=== PATIENT | male | born 1940 | race African-American/Black ===

== ENCOUNTER → 2017-04-26 12:24 | Outpatient (CLI) | payer MEDICARE ==
[2015-05-12 12:55] VITALS: BMI 25.1
[~2017-04-26 12:24] MED LIST: FLOMAX0.4 MG PO; NORVASC2.5 MG PO; PROSCAR5 MG PO
== END | disposition home or self-care (01) ==
LOC: D.MRI 12:24
DX: M54.16 Radiculopathy, lumbar region (principal)

== ENCOUNTER 2017-05-16 11:09 | Outpatient (CLI) | payer MEDICARE ==
--- NOTE | ~2017-05-16 | HEMODYNAMI ---
PATIENT:OCHOA MCKEON MEDICAL RECORD: [id number] : 36 LOCATION:[facility] ADMISSION DATE: 05/16/17 Generatedon:05/16/201714:22 Patient name: OCHOA MCKEON Patient #: [id number] SSN: D OB: 1940 Date of study: 05/16/2017 Page: Of Hemodynamic Procedure Report Patient Data Patient Demographics Procedure consent was obtained First Name: OCHOA Gender: Male Last Name: LINDA : 1940 Patient #: [id number] Age: 77 year(s) Race: Black Additional ID: [id number] Contact details Address: [address] [place] [address] State: [place] City: [place] Zip code: [address] Past Medical History Allergies: No known allergies Admission Admission Data Admission Date: 05/16/2017 Admission Time: 11:09 Height (in.): 70 BSA: 1.95 (m2) Height (cm.): 177.8 BMI: 24.54 (kg/m2) Weight (lbs.): 171 Weight (kg.): 77.56 Lab Results Lab Result Date: 05/16/2017 Lab Result Time: 0:00 Biochemistry Name Units Result Min Max BUN mg/dl 17 --(---*)-- 7 18 Creatinine mg/dl 1.1 --(--*-)-- 0.6 1.3 CBC Name Units Result Min Max Hematocrit % 38.2 *-(----)-- 42 54 Hemoglobin g/dl 12.7 -*(----)-- 13.5 17.5 Procedure Procedure Types Cath Procedure Diagnostic Procedure C [facility] w/Coronaries Miscellaneous Procedures Moderate Sedation up to 15 minutes Peripheral Cath Diagnostic Procedure Cath Peripheral Snhac-Cppafnc-Wdf-Off Procedure Description Procedure Date Procedure Date: 05/16/2017 Procedure Start Time: 13:48 Procedure End Time: 14:15 Procedure Staff Name Function Gerardo Billingsley RN Radiology Receptionist Gunner Navarro MD Performing Physician Estefany CARDENAS Scrub Florencio Morales RT Monitor Procedure Data Cath Procedure Fluoroscopy Diagnostic fluoroscopy Total fluoroscopy Time: 6 time: 6 min min Diagnostic fluoroscopy Total fluoroscopy dose: dose: 1054 mGy 1054 mGy Contrast Material Contrast Material Type Amount (ml) Isovue 300 161 Entry Location Entry Primary Successful Side Size Upsize 1 Upsize Entry Closure Nolen ccessful Closure Location (Fr) (Fr) 2 (Fr) Remarks Device Remarks Femoral Right 5 Fr 6 Fr 6 Fr Exoseal artery Mid-Length Short Estimated blood loss: 10 ml Diagnostic catheters Device Type Used For End Catheter Placement Diagnostic Infinity 5Fr Procedure JL 5 catheter Cordis 5Fr 3DRC Catheter Procedure (MP) Cordis 5Fr Pigtail Procedure Catheter (MP) Cordis 5Fr JL 4.0 Procedure Catheter (MP) Procedure Complications No complications Procedure Medications Medication Administration Route Dosage Oxygen NC 2 l/min Heparin Flush Bag added to field 2 bags (1000units/500ml NS) 0.9% NaCl I.V. 100 ml/hr Fentanyl I.V. 50 mcg Versed I.V. 1 mg Fentanyl I.V. 50 mcg Versed I.V. 1 mg Heparin Bolus I.V. 4000 units Integrilin (Bolus I.V. 6.8 ml 2mg/ml) Integrilin (Bolus wasted 3.2 ml 2mg/ml) Plavix P.O. 600 mg Hemodynamics Rest BSA: 1.95 (m2) HGB: 12.7 (g/dl) O2 Consumption: Estimated: 216.39 (ml/min) O2 Co nsumption indexed: Estimated:110.97 (ml/min/m) Heart Rate: 61 (bpm) Pressure Samples Time Site Value (mmHg) Purpose Heart Use Rate(bpm) 13:57 LV 83/-27,-24 EDP 65 13:58 LV 105/-18,-16 Pullback 64 13:58 AO 99/42(65) Pullback 64 Gradients Valve Time Site 1 Site 2 Mean SEP/DFP Peak To Heart Use (mmHg) (sec/min) Peak Rate (mmHg) (bpm) Aortic 13:58 LV AO 5 16 6 64 105/-18,-16 99/42(65) Calculations Valve P-P Mean Valve Index Valve Source Name Gradient Area Flow (cm2) Aortic 6 5 6 5 Snapshots Pre Cath Intra NCS Post Cath Vital Signs Time Heart Resp SPO2 NIBP (mmHg) Rhythm Pain Sedation Rate (ipm) (%) Status Level (bpm) 13:19:28 53 17 94 151/91(111) NSR 0 (11) 10(A) , No pain 13:23:42 56 18 95 140/95(110) NSR 0 (11) 10(A) , No pain 13:27:52 53 17 95 145/95(118) NSR 0 (11) 10(A) , No pain 13:33:07 56 18 100 149/92(120) NSR 0 (11) 10(A) , No pain 13:37:21 58 16 100 166/93(121) NSR 0 (11) 10(A) , No pain 13:42:22 59 17 100 161/105(125) NSR 0 (11) 10(A) , No pain 13:46:42 61 16 100 166/97(125) NSR 0 (11) 10(A) , No pain 13:50:58 64 19 100 149/93(115) NSR 0 (11) 9(A) , No pain 13:55:13 62 17 100 134/92(117) NSR 0 (11) 9(A) , No pain 13:59:24 65 18 100 133/84(106) NSR 0 (11) 9(A) , No pain 14:03:36 62 18 100 135/86(108) NSR 0 (11) 9(A) , No pain 14:07:50 61 18 99 109/72(88) NSR 0 (11) 9(A) , No pain 14:11:56 64 19 99 118/71(93) NSR 0 (11) 9(A) , No pain 14:16:02 66 18 99 119/75(87) NSR 0 (11) 9(A) , No pain Medications Time Medication Route Dose Verified Delivered Reason Notes Effectiveness by by 13:21:48 Oxygen NC 2 Gunner Carrillo Per physician l/min [facility] Orlando Billingsley RN, MD 13:23:12 Heparin Flush added 2 Gunner Carrillo Bag to bags [facility] Orlando Billingsley RN (1000units/500ml field HAYWOOD NS) 13:23:25 0.9% NaCl I.V. 100 Gunner Carrillo Per physician ml/hr [facility] Orlando Billingsley RN, MD 13:48:28 Fentanyl I.V. 50 Gunner Carrillo for sedation mcg [facility] Orlando Billingsley RN, MD 13:48:39 Versed I.V. 1 mg Gunner Carrillo for sedation [facility] Orlando Billingsley RN, MD 14:05:20 Fentanyl I.V. 50 Gunner Carrillo for sedation mcg [facility] Orlando Billingsley RN, MD 14:05:23 Versed I.V. 1 mg Gunner Carrillo for sedation [facility] Orlando Billingsley RN, MD 14:07:01 Heparin Bolus I.V. 4000 Gunner [address] for units [facility] Orlando Billingsley RN anticoagulation 14:07:30 Integrilin I.V. 6.8 Gunner Carrillo for (Bolus 2mg/ml) ml [facility] Orlando Billingsley RN antiplatelet MD therapy 14:07:40 Integrilin wasted 3.2 Gunner Carrillo for (Bolus 2mg/ml) ml [facility] Orlando Billingsley RN antiplatelet MD therapy 14:18:23 Plavix P.O. 600 Gunner Carrillo for mg [facility] Orlando Billingsley RN antiplatelet MD therapy Procedure Log Time Note 12:53:14 Patient Height : 70 inches 12:53:21 Patient Weight : 171 lbs 13:00:40 Estefany CARDENAS(R) sent for patient. Start room use. 13:16:37 Diagnostic Cath status Elective 13:16:41 Time tracking: Regular hours 13:16:46 Plan of Care:Hemodynamics will remain stable., Cardiac rhythm will remain stable., Comfort level will be maintained., Respiratory function will remain adequate., Patient/ family verbilizes understanding of procedure., Procedure tolerated without complication., Recovers from procedure without complications.. 13:16:52 Patient received from Pre/Post Procedure Room to CCL 2 Alert and oriented. Tansferred to table in Supine position. 13:16:56 Warm blankets applied, and sharath hugger turned on for patient comfort. 13:16:57 Correct patient and procedure confirmed by team. 13:16:59 Signed procedure consent form obtained from patient. 13:17:00 ECG and BP/O2 sat monitors applied to patient. 13:17:01 Vital chart was started 13:17:01 Baseline sample Acquired. 13:17:03 Full Disclosure recording started 13:17:13 H&P Date Dictated: 05/16/2017 Within 30 days and on chart., H&P Addendum completed by physician on day of procedure. (MUST COMPLETE FOR ALL OUTPATIENTS). 13:17:15 Pre-procedure instructions explained to patient. 13:17:17 Pre-op teaching completed and patient verbalized understanding. 13:17:19 Family in waiting room. 13:17:21 Patient NPO since Midnight. 13:17:29 Patient allergic to No known allergies 13:17:32 Is the patient allergic to Iodine/contrast media? No. 13:17:33 Was the patient premedicated? Yes 13:18:39 Is patient on blood thinner?No 13:18:42 Patient diabetic? No. 13:18:53 Snore? No 13:18:55 Sleep apnea? No 13:19:02 Airway obstruction? No ? 13:19:05 Dentures? No ? 13:19:13 Patient pain scale 0/10 ?. 13:19:25 IV patent on arrival in left hand with 0.9% NaCl at O. 13:21:48 Oxygen 2 l/min NC was administered by Gerardo Billingsley RN; Per physician; 13:23:09 Lab Result : Hemoglobin 12.7 g/dl 13:23:09 Lab Result : Hematocrit 38.2 % 13:23:09 Lab Result : BUN 17 mg/dl 13:23:09 Lab Result : Creatinine 1.1 mg/dl 13:23:12 Heparin Flush Bag (1000units/500ml NS) 2 bags added to field was administered by Gerardo Billingsley RN; ; 13:23:16 Lab results completed and on chart. 13:23:19 Right groin area was prepped with chlora-prep and draped in sterile fashion 13:23:21 Sharps counted by scrub and verified by R.N. 13:23:21 Alarms reviewed by R. N. 13:23:22 Physician paged 13:23:25 0.9% NaCl 100 ml/hr I.V. was administered by Gerardo Billingsley RN; Per physician; 13:28:39 Use device set Femoral Dx 13:28:40 Tegaderm 4 x 4 opened to sterile field. 13:28:41 Acist Hand Control opened to sterile field. 13:28:41 Acist Manifold opened to sterile field. 13::43 Bag Decanter opened to sterile field. 13:28:43 Acist Syringe opened to sterile field. 13:28:44 Terumo 5Fr Fair[place] Sheath opened to sterile field. 13:28:44 Medline Cath Pack opened to sterile field. 13:28:49 St Los 260cm J .035 wire opened to sterile field. 13:28:50 Diagnostic Infinity 5Fr Multipack catheter opened to sterile field. 13:38:41 Zero performed for pressure channel P1 13:39:09 --------ALL STOP TIME OUT------ 13:39:09 Physician arrived 13:39:10 Final Timeout: patient, procedure, and site verified with staff and physician. All members of the team are in agreement. 13:39:12 Right groin site verified by team. 13:39:15 Physical assessment completed. ASA score P 2 - A patient with mild systemic disease as per Gunner Navarro MD. 13:39:18 Sedation plan: IV Moderate Sedation Versed, Fentanyl 13:48:24 Procedure started. 13:48:28 Local anesthetic to right femoral artery with Lidocaine 2% by Gunner Navarro MD.INITIAL ACCESS ONLY 13:48:28 Fentanyl 50 mcg I.V. was administered by Gerardo Billingsley RN; for sedation; 13:48:39 Versed 1 mg I.V. was administered by Gerardo Billingsley RN; for sedation; 13:48:40 A 5 Fr sheath was inserted into the Right Femoral artery 13:49:51 Procedure type changed to Cath procedure, Diagnostic procedure, LHC, LHC w/Coronaries, Miscellaneous Procedures, Moderate Sedation up to 15 minutes, Peripheral Cath Diagnostic Procedure, Cath Peripheral, Sehso-Gusswjh-Jmf-Off 13:51:30 A Cordis 5Fr JL 4.0 Catheter (MP) was advanced over the wire and used for Procedure. 13:51:44 Catheter removed. unable to cannulate vessel. 13:53:00 A Diagnostic Infinity 5Fr JL 5 catheter was advanced over the wire and used for Procedure. 13:53:06 LCA angiography performed. 13:55:18 Catheter exchanged over wire. 13:55:36 A Cordis 5Fr 3DRC Catheter (MP) was advanced over the wire and used for Procedure. 13:55:54 RCA angiography performed. 13:56:32 Catheter removed. 13:56:50 A Cordis 5Fr Pigtail Catheter (MP) was advanced over the wire and used for Procedure. 13:57:09 Layne Cushing 300cm 0.014 guide wire opened to sterile field. 13:57:10 Terumo 6Fr [place] Sheath opened to sterile field. 13:57:10 Merit BasixCompak Inflation Kit opened to sterile field. 13:58:01 LV gram done using ROBLES 13:58:04 Injector settings: Ml/sec: 10, Volume: 20, 13:58:12 EF : 40 % 13:58:43 Abdominal angiogram w/ runoff was performed. 13:59:12 Left leg runoff performed. 13:59:31 Terumo 6Fr [place] Destination Sheath opened to sterile field. 13:59:53 Right leg runoff performed. 14:02:07 Cordis 6FR XBLAD 4.0 guide catheter opened to sterile field. 14:03:30 Catheter removed. 14:03:35 Sheath upsized to a 6 Fr Mid-Length. 14:03:47 6 Fr xblad 4 guide catheter was inserted over the wire 14:05:20 Fentanyl 50 mcg I.V. was administered by Gerardo Billingsley RN; for sedation; 14:05:23 Versed 1 mg I.V. was administered by Gerardo Billingsley RN; for sedation; 14:07:01 Heparin Bolus 4000 units I.V. was administered by Gerardo Billingsley RN; for anticoagulation; 14:07:30 Integrilin (Bolus 2mg/ml) 6.8 ml I.V. was administered by Gerardo Billingsley RN; for antiplatelet therapy; 14:07:40 Integrilin (Bolus 2mg/ml) 3.2 ml wasted was administered by Gerardo Billingsley RN; for antiplatelet therapy; 14:07:52 cougar wire advanced. 14:09:22 Wire advanced across lesion. 14:09:37 Inflation number: 1 A Kirkland Sci Haywood 4.0 X 15 balloon was prepped and advanced across the Mid LAD, then inflated to 8 CHRISTEN for 0:30 (min:sec). 14:09:58 Inflation number: 2 The Kirkland Sci Haywood 4.0 X 15 balloon was reinflated across the Mid LAD, to 8 CHRISTEN for 0:30 (min:sec). 14:10:32 Inflation number: 3 The Kirkland Sci [place]wood 4.0 X 15 balloon was reinflated across the Mid LAD, to 12 CHRISTEN for 0:30 (min:sec). 14:11:13 Wire removed. 14:11:13 Balloon removed over the wire. 14:11:14 Guide catheter removed. 14:11:35 Sheath upsized to a 6 Fr Short. 14:11:46 Cordis 6Fr Exoseal opened to sterile field. 14:11:57 Sheath removed intact; hemostasis achieved with Exoseal to the Right Femoral artery. 14:11:59 Procedure ended.(Physican Out) 14:12:28 Fluoroscopy time 06.00 minutes. 14:12:38 Fluoroscopy dose: 1054 mGy 14:12:38 Flurop Dose total: 1054 14:12:42 Contrast amount:Isovue 300 161ml. 14:12:44 Sharps counted by scrub and verified by R.N. 14:12:45 Insertion/operative site no bleeding no hematoma. 14:12:48 Post-op/insertion site Right Femoral artery dressed using a 4 x 4 and Tegaderm. 14:12:51 Post right femoral artery:stable, soft, clean and dry 14:12:52 Post Procedure Pulses reassessed and unchanged 14:12:55 Post-procedure physical assessment completed. ASA score P 2 - A patient with mild systemic disease as per Gunner Navarro MD. 14:12:57 Post procedure rhythm: unchanged. 14:12:59 Estimated blood loss: 10 ml 14:13:00 Patient needs reinforcement of post procedure teaching. 14:13:00 Post procedure instruction explained to patient.Patient verbalizes understanding. 14:15:46 Procedure and supply charges have been captured, reviewed, submitted and are correct. 14:15:48 Procedure Complication : No complications 14:15:50 Vital chart was stopped 14:15:51 See physician's report for complete and final results. 14:15:52 Report given to Pre/Post Procedure Room. 14:15:54 Patient transfered to Pre/Post Procedure Room with Stretcher. 14:15:56 Full Disclosure recording stopped 14:15:56 Procedure ended. 14:16:34 End room use (Document Last) 14:18:23 Plavix 600 mg P.O. was administered by Gerardo Billingsley RN; for antiplatelet therapy; Intervention Summary Intervention Notes Time ActionType Lesion and Equipment Action# Pressure Duration Attributes Used 14:09:37 Inflate Mid LAD Kirkland 1 8 00:30 balloon Sci Haywood 4.0 X 15 balloon 14:09:58 Reinflate Mid LAD Kirkland 2 8 00:30 balloon Sci Haywood 4.0 X 15 balloon 14:10:32 Reinflate Mid LAD Kirkland 3 12 00:30 balloon Sci Haywood 4.0 X 15 balloon Device Usage Item Name Manufacture Quantity Catalog Number Hospital Part Current Mini mal Lot# / Charge Number Stock Stock Serial# Code Tegaderm 4 3M 1 [id number] [id number] [id number] [id number] 5 x 4 Acist Acist 1 66312 499788 030176 251007 5 SpinVox Systems Vendly Acist Hand Acist 1 17159 795180 234002 669878 5 Agrisoma Biosciences Systems Vendly Acist Acist 1 84914 944110 146814 048688 20 Syringe Flextown Systems Vendly Bag Microtek 1 2002S 353129 04432 107386 5 Gamma Medica Inc. Medline Cardinal 1 [id number] 661166 17118 240959 5 Cath Pack Health Terumo 5Fr Terumo 1 [id number] 684694 900566 516924 [address] Los St Los 1 139636 375884 859843 345220 30 260cm J .035 wire Diagnostic Cardinal 1 ZW2011 570290 50150 743953 30 Infinity Health 5Fr Multipack catheter Diagnostic Cardinal 1 [id number] 865479 147952 165183 5 Infinity Health 5Fr JL 5 catheter Cordis 5Fr Cardinal 1 888152 5 3DRC Health Catheter (MP) Cordis 5Fr Cardinal 1 497512 5 Pigtail Health Catheter (MP) Layne Layne 1 [id number] 586907 545853 819390 1 [place] Vascular 300cm 0.014 guide wire Merit Merit 1 PT5924 269689 233011 753864 15 BasixReachDynamics Medical Inflation Kit Terumo 6Fr Terumo 1 SBP181 531646 744681 703669 40 [place] Sheath Cordis 5Fr Cardinal 1 837601 5 JL 4.0 Health Catheter (MP) Terumo 6Fr Terumo 1 RSR01 510235 33259 045437 5 [place]ton Destination Sheath Cordis 6FR Cardinal 1 [id number] 556683 635639 752052 3 XBLAD 4.0 Health guide catheter Kirkland Sci Kirkland 1 [id number] 505006 453904 139889 1 [id number] [employer] 4.0 X 15 balloon Cordis 6Fr Cardinal 1 EX600 222382 696619 106299 10 [facility] Health Signature Audit [place] Time Signature Unsigned Intra-Procedure 05/16/2017 Florencio Morales 2:22:51 PM RT(R) Signatures Monitor : Florencio Morales RT Signature : Date : Time : [address] [place] [address]
[2017-05-16] MEDS ORDERED: LISINOPRIL-HCTZ1 T11 PO (11:32)
[2017-05-16] MEDS ORDERED: PROSCAR5 MG PO (11:33)
[2017-05-16] MEDS ORDERED: BAYER CHEWABLE81 MG PO (11:34)
[2017-05-16 11:37] VITALS: BP 135/91; BMI 24.4
[2017-05-16 11:56] LABS: HEMATOCRIT 38.2 % (42.0-54.0); HEMOGLOBIN 12.7 g/dL (13.5-17.5); MCH 28.2 pg (26.0-34.0); MCHC 33.2 g/dL (31.0-37.0); MCV 84.9 fL (80.0-100.0); MEAN PLATELET VOLUME 9.2 fL (7.4-10.4); PLATELET COUNT 189 10x3/uL (130-400); RDW 12.8 % (11.5-14.5); WBC 3.1 10x3/uL (4.8-10.8)
[2017-05-16 12:10] LABS: CALCIUM 9.4 mg/dL (8.5-10.1); CARBON DIOXIDE 34.6 mmol/L (21.0-32.0); CREATININE - SERUM 1.1 mg/dL (0.6-1.3); POTASSIUM - SERUM 3.6 mmol/L (3.5-5.1)
[2017-05-16 12:37] LABS: EOSINOPHILS 3 % (0-7); LYMPHOCYTES 56 % (15-50); MONOCYTES 5 % (2-11); NEUTROPHILS 35 % (40-80); PLATELET ESTIMATE NORMAL
--- NOTE | 2017-05-16 14:50 | NUR ---
2L NC, NO RESP DISTRESS NOTED. RIGHT GROIN 6F EXOSEAL CDI, NO BLEEDIGN OR HEMATOMA NOTED. DENIES ANY C/O PAIN OR NAUSEA. FAMILY AT BEDSIDE, CALL LIGHT WITHIN REACH.
--- NOTE | 2017-05-16 15:20 | NUR ---
RESTING WITH EYES CLOSED. 2L NC, NO RESP DISTRESS NOTED. RIGHT GROIN 6F EXOSEAL CDI, NO BLEEDING OR HEMATOMA NOTED. NO C/O AT THIS TIME. WILL CONTINUE TO MONITOR.
--- NOTE | 2017-05-16 15:35 | NUR ---
RIGHT GROIN 6F EXOSEAL CDI, NO BLEEDING OR HEMATOMA NOTED. 2L NC, NO RESP DISTRESS. NO C/O PAIN. VSS. NO NEEDS VOICED. CALL LIGHT WITHIN REACH.
[2017-05-16] MEDS ORDERED: PLAVIX75 MG PO (15:54)
--- NOTE | 2017-05-16 17:59 | NUR ---
HOB ELEVATED 30 DEGREES. RIGHT GROIN 6F EXOSEAL CDI, NO BLEEDING NOTED. SANDWICH TRAY AND DRINK GIVEN.
--- NOTE | 2017-05-16 18:15 | NUR ---
LEFT FA PIV D/C'D WITH CATHETER INTACT, BAND AID TO SITE. UP TO BEDSIDE TO GET DRESSED.
--- NOTE | 2017-05-16 18:20 | NUR ---
DISCHARGE INSTRUCTIONS GIVEN, VERBALIZED UNDERSTANDING.
--- NOTE | 2017-05-16 18:30 | NUR ---
TAKEN OUT VIA WHEELCHAIR BY CATH TOOL GRINDER OPERATOR EXTERNAL. LEFT FACILITY WITH FAMILY MEMBER AND ALL PERSONAL BELONGINGS.
--- NOTE | 2017-05-17 12:40 | OP ---
PATIENT NAME: OCHOA MCKEON MEDICAL RECORD: [id number] :36 LOCATION:D.[facility] ADMISSION DATE: SURGEON: JHON MAIER MD DATE OF OPERATION: 05/16/2017 PROCEDURE: Left heart catheterization, selective coronary angiography, right femoral approach. CATHETERS: A 5-English sheath, 5/4 left and right Shaunna, 5/4 pig. The procedure was tolerated and we proceeded to AFRO and then PTCA stenting of the LAD. FINDINGS: Left ventriculography in 30-degree ROBLES view shows particularly inferior basilar hypokinesis. Overall, function reduced. Estimated EF 35% to 40%. CORONARY ANATOMY: LEFT MAIN: Left main is free of disease. LAD: LAD in its mid portion of the previously placed stent shows about 80% stenosis, best appreciated in the TURKMEN caudal view. CIRCUMFLEX: Free of disease. RIGHT CORONARY ARTERY: Totally occluded as described previously, but fills via left to right collaterals. IMPRESSION: Restenosis of the LAD. PLAN: Intervention momentarily. DESCRIPTION OF PROCEDURE: A 5-English sheath was exchanged for a long 6-English sheath. An XB LAD 4 guiding catheter provided excellent guide catheter support followed by a 300 cm Whisper wire was placed across the totally occluded restenosed LAD. Balloon inflations were performed with a 4.0 x 15 mm Imperial nondrug-eluting stent up to 14 atmospheres for 45 seconds. Following angiography shows excellent resolution of 80% in-stent restenosis. No significant residual. KATYA flow was 3 throughout the procedure. Heparin and Integrilin were used during the case. AORTOFEMORAL RUNOFF: The catheter was pulled down to the level above the renal arteries. Abdominal aortic runoff was performed. This showed no evidence of renal artery stenosis, no evidence of aortic aneurysm or dissection. LEFT SYSTEM: Left common carotid shows some small disease, but no flow obstructing stenosis. The left deep femoral shows some mild disease with no significant stenosis. Left superficial femoral shows a very discrete 90% stenosis in its distal 1/3. Distal runoff shows again a tight stenosis of the posterior tibial right at the bifurcation of 90%. RIGHT SYSTEM: Right common iliac, no significant stenosis. Right internal iliac, some mild disease, no significant stenosis. Right deep femoral, no significant stenosis. Right superficial femoral shows marked plaquing throughout its course, but no flow obstructing stenosis at the takeoff of the OPERATIVE REPORT [id number] OCHOA MCKEON posterior tibial. Again, there is a tight stenosis. 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 Disease on the left femoral system including distally might be amenable to transcatheter revascularization. TRANSINT:[id number] Voice Confirmation ID: [id number] DOCUMENT ID: [id number] JHON MAIER MD at 1240 CC: [id number] DICTATION DATE: 05/16/171419 [facility]: 05/16/17 1440 DEP CLI 05/16/17 [facility] [address] [place] [address]
== END 2017-05-16 18:30 | disposition home or self-care (01) ==
LOC: D.CATH 11:09
PROVIDERS: Internal Medicine Interventional Cardiology
DX: I25.119 Atherosclerotic heart disease of native coronary artery with unspecified angina pectoris (principal); T82.855A Stenosis of coronary artery stent, initial encounter; I42.9 Cardiomyopathy, unspecified; I70.202 Unspecified atherosclerosis of native arteries of extremities, left leg; Z01.812 Encounter for preprocedural laboratory examination

== ENCOUNTER → 2017-05-29 10:53 | Outpatient (CLI) | payer MEDICARE ==
--- NOTE | ~2017-05-29 | HEMODYNAMI ---
PATIENT:OCHOA MCKEON MEDICAL RECORD: [id number] : 36 LOCATION:[facility] ADMISSION DATE: 05/29/17 Generatedon:05/29/201713:38 Patient name: OCHOA MCKEON Patient #: [id number] SSN: D OB: 1940 Date of study: 05/29/2017 Page: Of Hemodynamic Procedure Report Patient Data Patient Demographics Procedure consent was obtained First Name: OCHOA Gender: Male Last Name: LINDA : 1940 Patient #: [id number] Age: 77 year(s) Race: Black Additional ID: [id number] Contact details [address]: [address] [place] [address] State: [place] City: [place] Zip code: [address] Past Medical History Allergies: No known allergies Admission Admission Data Admission Date: 05/29/2017 Admission Time: 10:53 Lab Results Lab Result Date: 05/29/2017 Lab Result Time: 11:20 Biochemistry Name Units Result Min Max BUN mg/dl 20 --(----)*- 7 18 Creatinine mg/dl 1 --(--*-)-- 0.6 1.3 CBC Name Units Result Min Max Hematocrit % 35.3 *-(----)-- 42 54 Hemoglobin g/dl 11.6 *-(----)-- 13.5 17.5 Procedure Procedure Types Cath Procedure Miscellaneous Procedures Moderate Sedation up to 30 minutes Peripheral Cath Diagnostic Procedure Peripheral vascular Intervention Stent Stent-Fem/Popw/plasty Procedure Description Procedure Date Procedure Date: 05/29/2017 Procedure Start Time: 13:06 Procedure End Time: 13:38 Procedure Staff Name Function Gunner Navarro MD Performing Physician Luana Dunn RT Scrub Jonathan Chin RT Monitor Lily Vivas RN Nurse Procedure Data Cath Procedure Fluoroscopy Diagnostic fluoroscopy Total fluoroscopy Time: 8.6 time: 8.6 min min Diagnostic fluoroscopy Total fluoroscopy dose: 146 dose: 146 mGy mGy Contrast Material Contrast Material Type Amount (ml) Isovue 300 55 Entry Location Entry Primary Successful Side Size Upsize 1 Upsize Entry Closure Nolen ccessful Closure Location (Fr) (Fr) 2 (Fr) Remarks Device Remarks Femoral Right 6 Fr 6 Fr 6 Fr Exoseal artery Short Mid-Length Short Estimated blood loss: 10 ml Diagnostic catheters Device Type Used For End Catheter Placement Diagnostic Infinity 5Fr Procedure IM catheter Procedure Complications No complications Procedure Medications Medication Administration Route Dosage Oxygen NC 2 l/min Lidocaine 2% Heparin Flush Bag added to field 2 bags (1000units/500ml NS) 0.9% NaCl I.V. 100 ml/hr Versed I.V. 1 mg Fentanyl I.V. 50 mcg Heparin Bolus I.V. 4000 units Versed I.V. 1 mg Fentanyl I.V. 50 mcg Hemodynamics Rest HGB: 11.6 (g/dl) Heart Rate: 77 (bpm) Snapshots Pre Cath Intra NCS Post Cath Vital Signs Time Heart Resp SPO2 etCO2 NIBP (mmHg) Rhythm Pain Sedation Rate (ipm) (%) (mmHg) Status Level (bpm) 12:57:07 75 19 97 42.8 182/110(151) NSR 0 (11) 10(A) , No pain 13:02:00 79 18 100 40.6 188/126(147) NSR 0 (11) 10(A) , No pain 13:06:42 81 16 100 51.9 160/111(121) NSR 0 (11) 10(A) , No pain 13:11:29 81 16 100 55.6 172/124(146) NSR 0 (11) 9(A) , No pain 13:16:16 85 15 100 51.8 173/101(149) NSR 0 (11) 9(A) , No pain 13:21:04 84 13 100 54.8 180/119(140) NSR 0 (11) 9(A) , No pain 13:25:58 89 16 100 50.3 187/122(145) NSR 0 (11) 9(A) , No pain 13:30:42 87 15 100 45.1 171/107(158) NSR 0 (11) 10(A) , No pain 13:35:29 87 15 100 48.1 171/102(123) NSR 0 (11) 10(A) , No pain Medications Time Medication Route Dose Verified Delivered Reason Notes Effectiveness by by 13:01:15 Oxygen NC 2 Gunner Bautista used for l/min [facility] [place] Vivas RN procedure MD 13:01:23 Lidocaine 2% Gunner Martino for local [facility] anesthetic MD HAYWOOD 13:01:31 Heparin Flush added 2 Gunner Martino used for Bag to bags [facility] procedure (1000units/500ml field MD HAYWOOD NS) 13:01:43 0.9% NaCl I.V. 100 Gunner Bautista Per physician ml/hr [facility] Vivas RN, MD 13:03:36 Versed I.V. 1 mg Gunner Bautista for sedation [facility] Vivas RN, MD 13:03:44 Fentanyl I.V. 50 Gunner Mckeonie for sedation mcg [facility] Vivas RN, MD 13:09:18 Heparin Bolus I.V. 4000 Gunner Buffie for verifi ed units [facility] [place] Vivas RN anticoagulation with dr MD doshi 13:17:11 Versed I.V. 1 mg Gunner Bautista for sedation [facility] Vivas RN, MD 13:17:16 Fentanyl I.V. 50 Gunner Mckeonie for sedation [facility] Orlando Vivas RN, MD Procedure Log Time Note 12:47:13 Jonathan Chin RT(R) (CV) sent for patient. Start room use. 12:47:14 Time tracking: Regular hours 12:47:18 Plan of Care:Hemodynamics will remain stable., Cardiac rhythm will remain stable., Comfort level will be maintained., Respiratory function will remain adequate., Patient/ family verbilizes understanding of procedure., Procedure tolerated without complication., Recovers from procedure without complications.. 12:47:33 Warm blankets applied, and sharath hugger turned on for patient comfort. 12:47:34 Correct patient and procedure confirmed by team. 12:47:35 Signed procedure consent form obtained from patient. 12:47:36 ECG and BP/O2 sat monitors applied to patient. 12:50:31 Full Disclosure recording started 12:53:15 Lab Result : Creatinine 1 mg/dl 12:53:15 Lab Result : BUN 20 mg/dl 12:53:15 Lab Result : Hematocrit 35.3 % 12:53:15 Lab Result : Hemoglobin 11.6 g/dl 12:53:47 H&P Date Dictated: 05/10/2017 Within 30 days and on chart., H&P Addendum completed by physician on day of procedure. (MUST COMPLETE FOR ALL OUTPATIENTS). 12:56:07 Vital chart was started 12:56:15 Baseline sample Acquired. 12:56:21 Rhythm: sinus rhythm 12:58:45 Pre-procedure instructions explained to patient. 12:58:45 Pre-op teaching completed and patient verbalized understanding. 12:58:47 Family in waiting room. 12:59:00 Patient NPO since Midnight. 12:59:05 Patient allergic to No known allergies 12:59:08 Is the patient allergic to Iodine/contrast media? No. 12:59:09 Is patient on blood thinner?Yes 12:59:12 ACC The patient was administered the following blood thiners within the last 24 hours: ACCPlavix 12:59:14 Patient diabetic? No. 12:59:18 Previous problem with sedation/anesthesia? No ? 12:59:20 Snore? No 12:59:21 Sleep apnea? No 12:59:34 Deviated septum? No 12:59:35 Opens mouth fully? Yes 12:59:37 Sticks out tongue? Yes 12:59:39 Airway obstruction? No ? 12:59:41 Dentures? No ? 12:59:45 Pre procedure: right dorsailis pedis pulse 1+ Palpable, but thready & weak; easily obliterated 12:59:48 Pre procedure: left dorsailis pedis pulse Doppler 12:59:54 Patient pain scale 0/10 ?. 13:00:23 IV patent on arrival in left hand with 0.9% NaCl at [facility]. 13:00:25 Lab results completed and on chart. 13:00:28 Bilateral groins area was prepped with chlora-prep and draped in sterile fashion 13:00:29 Alarms reviewed by R. N. 13:00:29 Sharps counted by scrub and verified by R.N. 13:00:33 Tegaderm 4 x 4 opened to sterile field. 13:00:34 Acist Hand Control opened to sterile field. 13:00:35 Acist Manifold opened to sterile field. 13:00:36 Acist Syringe opened to sterile field. 13:00:36 Bag Decanter opened to sterile field. 13:00:37 Medline Cath Pack opened to sterile field. 13:00:37 St Los 260cm J .035 wire opened to sterile field. 13:00:49 Physician arrived 13:00:53 --------ALL STOP TIME OUT------ 13:00:53 Final Timeout: patient, procedure, and site verified with staff and physician. All members of the team are in agreement. 13:00:56 Bilateral groins site verified by team. 13:00:59 Physical assessment completed. ASA score P 2 - A patient with mild systemic disease as per Gunner Navarro MD. 13:01:01 Sedation plan: IV Moderate Sedation Versed, Fentanyl 13:01:15 Oxygen 2 l/min NC was administered by Lily Vivas RN; used for procedure; 13:01:23 Lidocaine 2% was administered by Gunner Navarro MD; for local anesthetic; 13:01:31 Heparin Flush Bag (1000units/500ml NS) 2 bags added to field was administered by Gunner Navarro MD; used for procedure; 13:01:43 0.9% NaCl 100 ml/hr I.V. was administered by Lily Vivas RN; Per physician; 13:02:42 Terumo 6Fr Arlee Sheath opened to sterile field. 13:02:43 Merit BasixCompak Inflation Kit opened to sterile field. 13:03:36 Versed 1 mg I.V. was administered by Lily Vivas RN; for sedation; 13:03:44 Fentanyl 50 mcg I.V. was administered by Lily Vivas RN; for sedation; 13:05:50 Zero performed for pressure channel P1 13:06:18 Procedure started. 13:06:29 Local anesthetic to right femoral artery with Lidocaine 2% by Gunner Navarro MD.INITIAL ACCESS ONLY 13:07:08 A 6 Fr Short sheath was inserted into the Right Femoral artery 13:07:31 Terumo 6Fr Arlee Destination Sheath opened to sterile field. 13:08:40 A Diagnostic Infinity 5Fr IM catheter was advanced over the wire and used for Procedure. 13:09:02 Terumo Super Stiff Angled 260cm glide wire opened to sterile field. 13:09:18 Heparin Bolus 4000 units I.V. was administered by Lily Vivas RN; for anticoagulation; verified with dr doshi 13::51 GLIDEWIRE ADVANCED AROUND HORN 13:10:02 Terumo TORQUE DEVICE PLASTIC .038 opened to sterile field. 13:14:21 Catheter removed. 13:14:37 Sheath upsized to a 6 Fr Mid-Length. 13:14:52 SHEATH ADVANCED AROUND THE HORN 13:16:26 Left leg runoff performed. 13:17:11 Versed 1 mg I.V. was administered by Lily Vivas RN; for sedation; 13:17:16 Fentanyl 50 mcg I.V. was administered by Lily Vivas RN; for sedation; 13:19:04 Wire advanced across lesion. 13:21:30 Inflation number: 1 A Cordis Powerflex Pro 5.0 X 60 X 135 balloon was prepped and advanced across the Mid Superficial Femoral, Left, then inflated to 12 CHRISTEN for 0:10 (min:sec). 13:28:41 Balloon removed over the wire. 13:28:50 Cordis SMART 6 X 60 X 120 stent was deployed across Mid Superficial Femoral, Left . 13:29:55 Inflation number: 2 The Cordis Powerflex Pro 5.0 X 60 X 135 balloon was reinflated across the Mid Superficial Femoral, Left, to 12 CHRISTEN for 0:30 (min:sec). 13:30:49 Balloon removed over the wire. 13:30:51 Stent catheter was removed intact over wire. 13:31:12 Sheath upsized to a 6 Fr Short. 13:31:16 Wire removed. 13:31:24 Cordis 6Fr Exoseal opened to sterile field. 13:31:42 Sheath removed intact; hemostasis achieved with Exoseal to the Right Femoral artery. 13:32:37 Procedure ended.(Physican Out) 13:32:50 Fluoroscopy time 08.60 minutes. 13:32:54 Flurop Dose total: 146 13:32:54 Fluoroscopy dose: 146 mGy 13:32:58 Contrast amount:Isovue 300 55ml. 13:33:00 Sharps counted by scrub and verified by R.N. 13:33:06 Insertion/operative site no bleeding no hematoma. 13:33:10 Post-op/insertion site Right Femoral artery dressed using a 4 x 4 and Tegaderm. 13:33:17 Post right femoral artery:stable, soft, clean and dry 13:33:34 Post Procedure Pulses reassessed and unchanged 13:33:40 Post-procedure physical assessment completed. ASA score P 2 - A patient with mild systemic disease as per Gunner Navarro MD. 13:33:44 Post procedure rhythm: unchanged. 13:33:48 Estimated blood loss: 10 ml 13:33:49 Post procedure instruction explained to patient.Patient verbalizes understanding. 13:33:50 Patient needs reinforcement of post procedure teaching. 13:34:17 Procedure type changed to Cath procedure, Miscellaneous Procedures, Moderate Sedation up to 30 minutes, Peripheral Cath Diagnostic Procedure, Peripheral vascular Intervention, Stent, Stent-Fem/Popw/plasty 13:37:07 Cook 18G 7cm Percutaneous Entry needle opened to sterile field. 13:37:58 Procedure and supply charges have been captured, reviewed, submitted and are correct. 13:38:02 Procedure Complication : No complications 13:38:07 Vital chart was stopped 13:38:07 See physician's report for complete and final results. 13:38:09 Report given to Pre/Post Procedure Room. 13:38:11 Patient transfered to Pre/Post Procedure Room with Stretcher. 13:38:13 Procedure ended. 13:38:13 Full Disclosure recording stopped 13:38:18 End room use (Document Last) Intervention Summary Intervention Notes Time ActionType Lesion and Equipment Action# Pressure Duration Attributes Used 13:21:30 Inflate Mid Cordis 1 12 00:10 balloon Superficial Powerflex Femoral, Pro 5.0 X Left 60 X 135 balloon 13:28:50 Deploy self Mid Cordis 1 expanding Superficial SMART 6 X stent Femoral, 60 X 120 Left stent 13:29:55 Reinflate Mid Cordis 2 12 00:30 balloon Superficial Powerflex Femoral, Pro 5.0 X Left 60 X 135 balloon Device Usage Item Name Manufacture Quantity Catalog Hospital Part Current Minimal Lot# / Number Charge Number Stock Stock Serial# Code Tegaderm 4 x 3M 1 [id number] [id number] [id number] [id number] 5 4 Acist Hand Acist 1 13211 897910 729811 031848 5 Control [employer] Inc Acist Acist 1 06183 044084 829057 435773 5 Manifold Medical Systems Inc Acist Acist 1 72357 916527 235766 853436 20 Syringe Medical Systems Inc Bag Decanter Microtek 1 2002S 8916561 45454 127119 5 Medical Inc. Medline Cath Cardinal 1 [id number] 637813 32707 428883 [address] [facility] [address] [facility] [address] Los 1 264670 579000 117365 342002 30 260cm J .035 wire Terumo 6Fr Terumo 1 [id number] 476619 513679 669340 40 Arlee Sheath Merit Merit 1 [id number] 304216 872115 123150 15 BasixCompak Medical Inflation Kit Terumo 6Fr Terumo 1 RSR01 280082 16659 125963 5 Arlee Destination Sheath Diagnostic Cardinal 1 [id number] 850667 218830 185754 5 Infinity 5Fr Health IM catheter Terumo Super Terumo 1 [id number] 074816 844366 518688 5 Stiff Angled 260cm glide wire Terumo [place] 1 TD01 326292 736485 549972 5 TORQUE Scientific DEVICE PLASTIC .038 Cordis Cardinal 1 [id number] 390438 699259 865264 5 Powerflex Health Pro 5.0 X 60 X 135 balloon Cordis SMART Cardinal 1 [id number] 952635 680959 0 [id number] 6 X 60 X 120 Health stent Cordis 6Fr Cardinal 1 EX600 580643 106978 383721 10 Exoseal Health Cook 18G 7cm [facility] 1 [id number] 702895 76802 504442 5 Percutaneous Entry needle Signature Audit [place] Stage Time Signature Unsigned Intra-Procedure 05/29/2017 Luana Dunn 1:38:38 PM RT(R) Signatures Monitor : Jonathan Chin RT Signature : Date : Time : [facility] [address] [place] [address]
[~2017-05-29 10:53] MED LIST changes: +BAYER CHEWABLE81 MG PO; +LISINOPRIL-HCTZ1 T11 PO; +PLAVIX75 MG PO
[2017-05-29 11:10] VITALS: BP 167/93; BMI 25.6
[2017-05-29 11:35] LABS: BASOPHILS 0.6 % (0-2); EOSINOPHILS 2.5 % (0-7); HEMATOCRIT 35.3 % (42.0-54.0); HEMOGLOBIN 11.6 g/dL (13.5-17.5); IMMATURE GRANULOCYTES 0.3 % (0-5); LYMPHOCYTES 35.4 % (15-50); MCH 28.1 pg (26.0-34.0); MCHC 32.9 g/dL (31.0-37.0); MCV 85.5 fL (80.0-100.0); MONOCYTES 9.5 % (2-11); NEUTROPHILS 51.7 % (40-80); RBC 4.13 10x6/uL (4.20-6.10); WBC 3.6 10x3/uL (4.8-10.8)
[2017-05-29 11:40] LABS: PLATELET COUNT 244 10x3/uL (130-400)
[2017-05-29 11:48] LABS: CALC OSMOLALITY 289 mosm/kg (275-300); CARBON DIOXIDE 32.1 mmol/L (21.0-32.0); CHLORIDE - SERUM 104 mmol/L (98-107); GLUCOSE 90 mg/dL (74-106); SODIUM 144 mmol/L (136-145); UREA NITROGEN 20 mg/dL (7-18); eGFR NON AFRICAN AMERICAN 76 mL/min (90-120)
--- NOTE | 2017-05-29 13:38 | NUR ---
3221 RECIEVED TO ROOM VIA STRETCHER FROM NET APPLICATION SUPPORT SPECIALIST WITH 6 FR EXOSEAL R/GROIN CDI NO BLEEDING NO HEMATOMA NOTED. REPORTS OF ONE STENT TO THE SFA VSS WITH NO DISTRESS NOTED
--- NOTE | 2017-05-29 14:13 | NUR ---
RESTING QUIETLY WITH 6 FR EXOSEAL R/GROIN CDI NO BLEEDING NO HEMATOMA NOTED. VSS WITH NO DISTRESS NOTED FAMILY AT BEDSIDE
--- NOTE | 2017-05-29 14:45 | NUR ---
1445 R/GROIN REMAINS CDI NO BLEEDING NO HEMATOMA NOTED. PATIENT VOIDS 400 CC URINE TO COLLECTION 1515 SANDWICH AND SODA TO BEDSIDE WITH VSS PATIENT DENIED NEEDS OR PAIN AT THIS TIME. R/GROIN CDI
--- NOTE | 2017-05-29 15:44 | NUR ---
R/GROIN STABLE WITH DRESSING CDI. VSS AND PATIENT IS ALERT AND ORIENTED WITH CHEST PAIN DENIED
--- NOTE | 2017-05-29 16:17 | NUR ---
NO CHANGE IN ASSESSMENT R/GROIN REMAINS CDI VSS
--- NOTE | 2017-05-29 16:53 | NUR ---
REPOSITIONED TO SITTING WITH HOB UP 45 DEGREES. R/GROIN REMAINS STABLE CDI. VSS AND CHEST PAIN DENIED. FAMILY IS AT BEDSIDE. VERBAL AND WRITTEN DISCHARGE GONE OVER WITH PATIENT AND FAMILY ALL VERBALIZED UNDERSTANDING
--- NOTE | 2017-05-29 17:11 | NUR ---
PIV REMOVED WITH DRESSING APPLIED. CHEST PAIN IS DENIED PATIENT GETS UP TO GET DRESSED. R/GROIN REMAINS CDI AT THIS TIME. DISCHARGE INSTRUCTIONS GONE OVER AGAIN WITH PATIENT TO EDUCATE
--- NOTE | 2017-05-29 17:29 | NUR ---
PATIENT TRANSPORTED VIA WC TO PARKING FOR FAMILY TO DRIVE HOME R/GROIN CDI AND CHEST PAIN DENIED PATIENT VERBALIZED NO DISTRESS
--- NOTE | 2017-05-31 13:46 | OP ---
PATIENT NAME: OCHOA MCKEON MEDICAL RECORD: [id number] :36 LOCATION:D.CAT ADMISSION DATE: SURGEON: JHON MAIER MD DATE OF OPERATION: 05/29/2017 PROCEDURE: BUILDING PERFORMANCE CONSULTANT of the left superficial femoral artery. For catheterization report, please see report dictated previously. DESCRIPTION OF PROCEDURE: Initially a 6-Estonian sheath was placed in the right femoral artery. We were able to transverse the horn to the left iliac and left superficial femoral artery. The Glidewire was placed across the totally occluded 90% stenosis superficial femoral artery down this portion of this vessel. Pre-deployment a 60 mm x 5.0 balloon was inflated pre-deployment. Next, the balloon was exchanged and a 5.06 mm Smart stent was placed across the area of occlusion and this showed marked wasting still both adequate inflow in the stents. Therefore, post-deployment, we used the same 60 mm x 5.0 balloon up to 14 atmospheres for total expansion of the stent. Final injection shows excellent resolution of 90% stenosis, no significant residual. KATYA flow was 3 throughout the procedure. Heparin was used during the case. Plavix was loaded in the lab. Sheath was closed with Exoseal device. TRANSINT:[id number] Voice Confirmation ID: [id number] DOCUMENT ID: [id number] JHON MAIER MD at 1346 CC: [id number] DICTATION DATE: 05/29/17 1339 DIRECTOR DRUG SAFETY: 05/29/17 1424 DEP CLI 05/29/17 [place] [address] [place] [address]
== END | disposition home or self-care (01) ==
LOC: D.CATH 10:53
PROVIDERS: Internal Medicine Interventional Cardiology
DX: I25.119 Atherosclerotic heart disease of native coronary artery with unspecified angina pectoris (principal); J44.9 Chronic obstructive pulmonary disease, unspecified; I25.10 Atherosclerotic heart disease of native coronary artery without angina pectoris; F17.200 Nicotine dependence, unspecified, uncomplicated; I70.219 Atherosclerosis of native arteries of extremities with intermittent claudication, unspecified extremity

== ENCOUNTER → 2018-01-30 09:10 | Outpatient (CLI) | payer MEDICARE ==
[2017-05-29 11:10] VITALS: BMI 25.6
== END | disposition home or self-care (01) ==
LOC: D.MRI 09:10
DX: M17.0 Bilateral primary osteoarthritis of knee (principal)

== ENCOUNTER → 2018-03-13 10:25 | Outpatient (CLI) | payer MEDICARE ==
[2017-05-29 11:10] VITALS: BMI 25.6
[2018-03-13 11:18] LABS: BASOPHILS 0.3 % (0-2); EOSINOPHILS 2.3 % (0-7); HEMATOCRIT 34.6 % (42.0-54.0); HEMOGLOBIN 11.3 g/dL (13.5-17.5); IMMATURE GRANULOCYTES 0.3 % (0-5); LYMPHOCYTES 37.4 % (15-50); MCH 26.3 pg (26.0-34.0); MCHC 32.7 g/dL (31.0-37.0); MCV 80.7 fL (80.0-100.0); MEAN PLATELET VOLUME 8.3 fL (7.4-10.4); MONOCYTES 11.9 % (2-11); NEUTROPHILS 47.8 % (40-80); RBC 4.29 10x6/uL (4.20-6.10); RDW 14.9 % (11.5-14.5); WBC 3.9 10x3/uL (4.8-10.8)
[2018-03-13 11:21] LABS: PLATELET COUNT 190 10x3/uL (130-400)
[2018-03-13 12:15] LABS: ALBUMIN 3.4 g/dL (3.4-5.0); ANION GAP 7.4 mmol/L (8-16); BILIRUBIN - TOTAL 0.52 mg/dL (0.2-1.3); CARBON DIOXIDE 32.8 mmol/L (21.0-32.0); CREATININE - SERUM 1.1 mg/dL (0.6-1.3); POTASSIUM - SERUM 4.2 mmol/L (3.5-5.1); PROTEIN - SERUM 6.8 g/dL (6.4-8.2); T4 THYROXINE 7.5 ug/dL (4.7-13.3); THYROID STIMULATING HORMONE 0.91 uIU/mL (0.36-3.74)
== END | disposition home or self-care (01) ==
LOC: D.LAB 10:25
PROVIDERS: Orthopaedic Surgery
DX: M11.261 Other chondrocalcinosis, right knee (principal); R53.82 Chronic fatigue, unspecified

== ENCOUNTER → 2018-04-22 07:40 | Outpatient (CLI) | payer MEDICARE ==
[2017-05-29 11:10] VITALS: BMI 25.6
== END | disposition home or self-care (01) ==
LOC: D.MRI 04-18 09:00
DX: M25.571 Pain in right ankle and joints of right foot (principal)

== ENCOUNTER → 2018-07-25 08:48 | Outpatient (CLI) | payer MEDICARE ==
[2017-05-29 11:10] VITALS: BMI 25.6
== END | disposition home or self-care (01) ==
LOC: D.CT 08:48
DX: I73.9 Peripheral vascular disease, unspecified (principal)

== ENCOUNTER → 2019-10-14 09:39 | Outpatient (CLI) | payer MEDICARE ==
[2017-05-29 11:10] VITALS: BMI 25.6
--- NOTE | ~2019-10-14 | EC ---
PATIENT:OCHOA MCKEON DATE OF SERVICE: 10/14/19 SEX: M MEDICAL RECORD: [id number] DATE OF : 36 LOCATION:D[facility] AGE OF PATIENT: 79 ADMISSION DATE: 10/14/19 REFERRING PHYSICIAN: INTERPRETING PHYSICIAN: JHON MAIER MD ECHOCARDIOGRAM REPORT ECHO CHARGES 4 ECHO COMPLETE Date: 10/14/19 CLINICAL DIAGNOSIS: CAD/CARDIOMYOPATHY/HTN/PVD ECHOCARDIOGRAPHIC MEASUREMENTS (adult normal given) AC root (d.<3.7cm) 5.5 cm LV Septum d (<1.2 cm> 1.9 cm Valve Excursion 2.0 cm LV Septum (systole) 2.4 cm Left Atria (s.<4.0cm> 3.5 cm LVPW d(<1.2cm) 2.1 cm RV (d.<2.3cm) 2.9 cm LVPW (sytole) 2.4 cm LV diastole(<5.6CM) 4.1 cm MV E-F(>70mm/sec) cm LV systole 2.9 cm LVOT Diameter 2.0 cm MV exc.(>10mm) 1.5 cm Est.ejection fraction (50-75%) % DOPPLER: LVIT cm/sec A 93.0 cm/sec E 59.0 cm/sec LA cm/sec RVSP 21 mmHg LVOT 88 cm/sec AOP1/2T m/s Asc. Ao 133 cm/sec RVOT 65 cm/sec RA cm/sec PA 100 cm/sec AV Gradient Peak 7.04 mmHg AV Mean 3.73 mmHg AV Area 2.3 cm MV Gradient Peak 5.24 mmHg MV Mean 1.36 mmHg MV Area cm COMMENTS: Key Carrier: 2 BRITTNEY GALLARDO Community Case Manager: 3 Dr. Navarro TAPE# PACS Pericardial Effusion N DATE OF SERVICE: Adequate 2D, color flow imaging, spectral Doppler, and M-Mode. LVH is present. LV internal dimension is normal. Wall motion is normal. EF is greater than or equal to 55%. Aortic valve is sclerotic. No evidence of stenosis by Doppler interrogation. Left atrium is normal at 3.9 cm. Mitral valve shows no prolapse. Trace MR. Right-sided chamber is grossly normal. Trace TR. ECHOCARDIOGRAM REPORT [id number] OCHOA MCKEON TRANSINT:[id number] Voice Confirmation ID: [id number] DOCUMENT ID: [id number] JHON MAIER MD CC: [id number] DICTATION DATE: 10/16/19 1523 COMPUTER HARDWARE DEVELOPER: 10/16/19 1601 DEP CLI 10/14/19 [place] [id number]
== END | disposition home or self-care (01) ==
LOC: D.HCCECHO 09:39
PROVIDERS: ATTEND Internal Medicine Interventional Cardiology
DX: I25.10 Atherosclerotic heart disease of native coronary artery without angina pectoris (principal)

== ENCOUNTER → 2020-05-03 08:51 | Outpatient (CLI) | payer MEDICARE ==
[2017-05-29 11:10] VITALS: BMI 25.6
--- NOTE | 2020-05-05 16:55 | EC ---
PATIENT:OCHOA MCKEON DATE OF SERVICE: 05/03/20 SEX: M MEDICAL RECORD: [id number] DATE OF : 36 [facility] AGE OF PATIENT: 80 ADMISSION DATE: 05/03/20 REFERRING PHYSICIAN: INTERPRETING PHYSICIAN: JHON MAIER MD ECHOCARDIOGRAM REPORT ECHO CHARGES 4 ECHO COMPLETE Date: 05/03/20 CLINICAL DIAGNOSIS: CAD/ASSESS EF ECHOCARDIOGRAPHIC MEASUREMENTS (adult normal given) AC root (d.<3.7cm) 3.3 cm LV Septum d (<1.2 cm> 2.0 cm Valve Excursion 2.0 cm LV Septum (systole) 2.2 cm Left Atria (s.<4.0cm> 4.3 cm LVPW d(<1.2cm) 1.9 cm RV (d.<2.3cm) 4.4 cm LVPW (sytole) 2.1 cm LV diastole(<5.6CM) 4.3 cm MV E-F(>70mm/sec) cm LV systole 2.7 cm LVOT Diameter 2.2 cm MV exc.(>10mm) 0.90 cm Est.ejection fraction (50-75%) % DOPPLER: LVIT cm/sec A 70.0 cm/sec E 43.0 cm/sec LA cm/sec RVSP 17 mmHg LVOT 99 cm/sec AOP1/2T m/s Asc. Ao 120 cm/sec RVOT 79 cm/sec RA cm/sec PA 118 cm/sec AV Gradient Peak 5.74 mmHg AV Mean 2.90 mmHg AV Area 3.3 cm MV Gradient Peak 4.73 mmHg MV Mean 1.00 mmHg MV Area cm COMMENTS: Control Technician: 2 BRITTNEY GALLARDO Knot Tying Operator: 3 Dr. Navarro TAPE# PACS Pericardial Effusion N DATE OF SERVICE: Adequate 2D, color-flow imaging, spectral Doppler, and M-Mode LVH is present. LV internal dimensions are normal. Wall motion is normal. EF is greater than or equal to 55%. Aortic valve sclerosis without stenosis by Doppler interrogation. Left atrium is mildly enlarged at 4.3 cm. Mitral valve shows no prolapse. Trace MR. Right-sided chambers are grossly normal. Trace TR. ECHOCARDIOGRAM REPORT [id number] OCHOA MCKEON TRANSINT:[id number] Voice Confirmation ID: [id number] DOCUMENT ID: [id number] JHON MAIER MD at 1655 CC: [id number] DICTATION DATE: 05/04/20 0844 SUPERVISOR LEAD BURNING: 05/04/20 1215 DEP CLI 05/03/20 [facility] [address] [place] [address]
== END | disposition home or self-care (01) ==
LOC: D.HCCECHO 08:51
PROVIDERS: ATTEND Internal Medicine Interventional Cardiology
DX: I25.10 Atherosclerotic heart disease of native coronary artery without angina pectoris (principal)